=== PATIENT | male | born 1990 ===

== ENCOUNTER 2022-05-04 06:08 | Emergency (ER) | payer OTHER ==
--- NOTE | 2022-05-04 11:00 | Emergency Department Report ---
ED Eye Problem HPI - General Chief complaint: Eye Problems Stated complaint: SWOLLEN EYELID Time Seen by Provider: 05/04/22 10:33 Source: patient Mode of arrival: Ambulatory Limitations: No Limitations - History of Present Illness Initial comments: 32-year-old male with no past medical history presents to the emergency department for evaluation of 2-day history of right eyelid redness and swelling. He states that he was seen in urgent care yesterday but did not get any treatment so he decided to come here. He states that for the last 2 days he is woke up with crusting of his right thigh along with redness and irritation of the eyelid. He denies any vision changes or fever but states that he does have intermittent and mild pain to his right. He denies injury or trauma. chief complaint: eye pain, other (Eyelid redness and swelling) -: Gradual, days(s) (2) Onset Description: gradual Location: right eye Place: home If Injury: none Eye Symptoms: pain, itching, discharge Severity scale (0 -10): 1 If Pain, Quality: aching Consistency: intermittent Associated Symptoms: none Treatments Prior to Arrival: none - Related Data Previous Rx's Medication Instructions Recorded Last Taken Type Bacitracin [Bacitracin Ophth] 1 applicatio OP Q4H 7 Days #1 tube 05/04/22 Unknown Rx Allergies Allergy/AdvReac Type Severity Reaction Status Date / Time No Known Allergies Allergy Unverified 05/04/22 06:17 ED Review of Systems ROS: Stated complaint: SWOLLEN EYELID Other details as noted in HPI Comment: All other systems reviewed and negative Constitutional: denies: chills, fever Eyes: eye pain, eye discharge, other (Eyelid swelling or redness). denies: vision change ENT: denies: ear pain, dental pain, hearing loss, congestion Respiratory: denies: cough, shortness of breath, SOB with exertion, SOB at rest Cardiovascular: denies: chest pain, palpitations Gastrointestinal: denies: abdominal pain, nausea, vomiting Musculoskeletal: denies: back pain Neurological: denies: headache, weakness ED Past Medical Hx - Past Medical History Previous Medical History?: No - Surgical History Past Surgical History?: No - Social History Smoking Status: Never Smoker Substance Use Type: None - Medications Home Medications: Home Medications Medication Instructions Recorded Confirmed Last Taken Type Bacitracin [Bacitracin Ophth] 1 applicatio OP Q4H 7 Days #1 tube 05/04/22 Unknown Rx ED Physical Exam - General Limitations: No Limitations General appearance: alert, in no apparent distress - Head Head exam: Present: atraumatic, normocephalic - Expanded Eye Exam Expanded Eyelids: Erythema: Right, Swelling: Right Pupils: Regular, Round: Bilateral, Reactive: Bilateral Sclera/Conjunctival: Normal Inspection: Left, Injection: Right (Mildly), Exudate: Right (Noted to have areas of eyelids) - ENT ENT exam: Present: normal exam - Neck Neck exam: Present: normal inspection. Absent: lymphadenopathy - Respiratory Respiratory exam: Absent: respiratory distress - Cardiovascular Cardiovascular Exam: Present: regular rate - GI/Abdominal GI/Abdominal exam: Absent: distended - Extremities Exam Extremities exam: Present: normal inspection - Back Exam Back exam: Present: normal inspection - Neurological Exam Neurological exam: Present: alert, oriented X3 - Psychiatric Psychiatric exam: Present: normal affect, normal mood - Skin Skin exam: Present: warm, dry, intact, normal color ED Course Vital Signs 05/04/22 06:17 Temperature 97.8 F Pulse Rate 63 Respiratory 16 Rate Blood Pressure 111/69 O2 Sat by Pulse 97 Oximetry ED Medical Decision Making - Medical Decision Making 32-year-old male with no past medical history presents to the emergency department for evaluation of 2-day history of right eyelid redness and swelling. He states that he was seen in urgent care yesterday but did not get any treatment so he decided to come here. He states that for the last 2 days he is woke up with crusting of his right thigh along with redness and irritation of the eyelid. He denies any vision changes or fever but states that he does have intermittent and mild pain to his right. He denies injury or trauma. Symptoms and exam consistent with blepharitis. Patient will be treated with bacitracin ointment to use as directed. He is advised to follow-up with ophthalmology if no improvement or worsening symptoms. He is advised to return to the emergency department as needed. He verbalizes understanding of and agreement with plan of care. Critical care attestation.: If time is entered above; I have spent that time in minutes in the direct care of this critically ill patient, excluding procedure time. ED Disposition Clinical Impression: Blepharitis Qualifiers: Blepharitis type: unspecified type Laterality: right Eyelid: upper Qualified Co de(s): H01.001 - Unspecified blepharitis right upper eyelid Disposition: 01 HOME / SELF CARE / HOMELESS Is pt being admited?: No Does the pt Need Aspirin: No Condition: Stable Instructions: Blepharitis, [id number] Additional Instructions: Use medication as directed. Follow-up with ophthalmology/eye doctor if no improvement or worsening symptoms. Return to the emergency department as needed. Prescriptions: Bacitracin [Bacitracin Ophth] 1 applicatio OP Q4H 7 Days #1 tube Referrals: KYLE GALLARDO MD [Staff Physician] - 3-5 Days Forms: Work/School Release Form(ED) Time of Disposition: 11:09
[2022-05-04 12:08] VITALS: BP 114/72
== END 2022-05-04 12:15 | disposition home or self-care (01) ==
LOC: ED 06:08
DX: H01.003 Unspecified blepharitis right eye, unspecified eyelid (principal)
CPT/HCPCS: 99282